=== PATIENT | male | born 1970 | race Native Hawaiian/Other Pacific Islander ===

== ENCOUNTER → 2020-06-14 | Outpatient (CLI) | payer BC, OTHER | LOC: INF 13:42 | PROVIDERS: ATTEND Internal Medicine | DX: Z23 Encounter for immunization (principal) | CPT/HCPCS: 96372 ==

== ENCOUNTER 2020-07-08 14:58 | Outpatient (CLI) | payer BC, OTHER | END 2020-07-08 23:20 | disposition home or self-care (01) | LOC: INF 14:58 | PROVIDERS: ATTEND Internal Medicine | DX: Z23 Encounter for immunization (principal) | CPT/HCPCS: 96372 ==